=== PATIENT | female | born 1950 | race Caucasian/White ===

== ENCOUNTER 2022-12-08 09:29 | Emergency (ER) | payer MEDICARE, MEDICAID ==
[~2022-12-08] VITALS: Ht 160 cm; Wt 53.6 kg
[2022-12-08 09:31] VITALS: BP 185/106; PULSE 89; RESP 14; TEMP 97.2; O2SAT 97
[2022-12-08] MEDS ORDERED: ROPI1TAB47 PO (10:14)
== END 2022-12-08 10:39 | disposition home or self-care (01) ==
LOC: ER 09:30
DX: G20 Parkinson's disease (principal); Z76.0 Encounter for issue of repeat prescription
CPT/HCPCS: 99284